=== PATIENT | female | born 1970 | race Caucasian/White ===

== ENCOUNTER 2016-08-30 12:37 | Emergency (ER) | payer OTHER ==
[2016-08-30] MEDS ORDERED: ACETAMINOPHEN 500 MG TABLET ONE (13:11)
== END 2016-08-30 13:18 | disposition home or self-care (01) ==
LOC: ED 12:37
DX: R68.89 Other general symptoms and signs (principal); M79.1 Myalgia
CPT/HCPCS: 99283; 99282; A9270